=== PATIENT | male | born 1935 | race Caucasian/White ===

== ENCOUNTER → 2021-06-17 | Outpatient (CLI) | payer MEDICARE ==
[~2021-06-17] MED LIST: ASPI81CH PO; Flomax0.4 MG PO; NAPR500; NIFE30ER PO; SIMV10 PO; SIMV5
[2021-06-17 10:40] LABS: Source, Urine Clean Catch
[2021-06-17 11:04] LABS: Red Blood Cells, Urine Rare /hpf (0-2); Squamous Epithelial Cells Few /hpf (Few)
[2021-06-17 11:05] LABS: Bacteria Few /hpf
== END ==
LOC: LAB SHORT 10:33
PROVIDERS: General Practice
DX: R35.0 Frequency of micturition (principal)
CPT/HCPCS: 81015

== ENCOUNTER 2024-02-20 02:11 | Inpatient (IN) | payer MEDICARE ==
[~2024-02-20] VITALS: Ht 175.3 cm; Wt 70.5 kg
[~2024-02-20 02:11] MED LIST changes: -SIMV10 PO; +Simvastatin10 MG PO
[2024-02-20] MEDS ORDERED: NS 1,000 ML IV SCH (03:10)
[2024-02-20] MEDS ORDERED: FentaNYL Citrate 50 MCG/ML 2 ML Injection IV ONE (03:10)
[2024-02-20 03:11] LABS: BASOPHILS ABSOLUTE AUTO 0.04 K/mm3 (0.00-0.23); BASOPHILS PERCENT AUTO 0 % (0-2); EOSINOPHILS PERCENT AUTO 0 % (0-6); Hematocrit 43.9 % (37.0-53.0); Hemoglobin 14.9 g/dL (13.5-17.5); IMMATURE GRAN ABSOLUTE AUTO 0.04 K/mm3 (0.00-0.10); IMMATURE GRAN PERCENT AUTO 0 % (0-1); LYMPHOCYTES ABSOLUTE AUTO 0.69 K/mm3 (0.84-5.20); LYMPHOCYTES PERCENT AUTO 5 % (21-46); MONOCYTES ABSOLUTE AUTO 1.03 K/mm3 (0.16-1.47); MONOCYTES PERCENT AUTO 8 % (4-13); Mean Corpuscular HGB Conc 33.9 g/dL (31.5-36.5); Mean Corpuscular Volume 97 fL (80-100); Mean Platelet Volume 8.9 fL (9.1-12.4); NEUTROPHILS ABSOLUTE AUTO 11.45 K/mm3 (1.96-9.15); NEUTROPHILS PERCENT AUTO 86 % (41-73); Platelet Count 225 K/mm3 (150-400); RDW Standard Deviation 46.4 fL (35.1-46.3); Red Blood Cell Count 4.52 M/mm3 (4.30-5.90); White Blood Cell Count 13.25 K/mm3 (4.00-11.30)
[2024-02-20 03:29] LABS: Albumin, Blood 3.6 g/dL (3.4-5.0); Albumin/Globulin Ratio 1.1 (0.8-1.8); Bilirubin, Total 0.8 mg/dL (0.1-1.0); Calcium, Blood 9.6 mg/dL (8.5-10.1); Globulin, Blood 3.2 g/dL (2.2-4.0); Potassium, Blood 3.6 mmol/L (3.5-5.5); Total Protein, Blood 6.8 g/dL (6.4-8.2)
[2024-02-20] MEDS ORDERED: FLU VACC TS2024-25(6MOS UP)/PF 45 MCG/0.5 ML SYRINGE IM PRN (11:10)
[2024-02-20 12:56] VITALS: BP 129/82
--- NOTE | 2024-02-20 13:56 | NUR ---
ADMISSION NOTE: PATIENT ARRIVED TO THE UNIT AT 1251. PATIENT WAS TRANFERRED ONTO BED FROM [facility] PER REQUEST. PATIENT ON BEDREST AT THIS TIME DUE TO PAIN FROM FALL; STATES HE HAS A TAILBONE FRACTURE. HE FELL FRIDAY AND YESTERDAY. HE STATES THAT HE HAS BEEN WEAK LATELY AND OFF BALANCED. HE IS IN BED, SETTLED IN ROOM, CALL LIGHT PROVIDED, HE STATES HE WOULD LIKE TO WAIT FOR HIS FRIENDS TO ARRIVE WITH IS MEDICATION LIST PRIOR TO GOING OVER HIS HISTORY, NO SIGNS OR SYMPTOMS OF DISTRESS, PLAN OF CARE ONGOING.
[2024-02-20] MEDS ORDERED: MYRBETRIQ25 MG PO (15:21)
[2024-02-20] MEDS ORDERED: LISI5 PO (15:21)
[2024-02-20] MEDS ORDERED: NITR.4SL SL (15:22)
[2024-02-20] MEDS ORDERED: MEDROL PO (15:23)
[2024-02-20] MEDS ORDERED: PROBIOTIC1 EA13 PO (15:23)
[2024-02-20] MEDS ORDERED: Cranberry425 MG PO (15:24)
[2024-02-20] MEDS ORDERED: FEROSUL325 M1 PO (15:31)
[2024-02-20 15:57] VITALS: BP 129/71
[2024-02-20 16:31] VITALS: BP 129/71
--- NOTE | 2024-02-20 17:10 | NUR ---
CALLED AND GAVE REPORT TO RIKA MIXON AT [facility] AT 1700
[2024-02-20 17:14] VITALS: BP 129/71
--- NOTE | 2024-02-20 17:24 | NUR ---
SHIFT SUMMARY: PATIENT HAS BEEN A&OX4/ON BEDREST AT THIS TIME DUE TO FALLS AND WEAKNESS. PATIENT IS PLEASANT AND COOPERATIVE WITH CARE. HIS NEIGHBOR BILL CAME BY AND BROUGHT HIS MEDICATION LIST AND POLST THAT SHOWED THAT PATIENT IS A DNR AND COMFORT MEASURES; BUT PATIENT WISHES TO REVOKE THAT AND BE A FULL CODE. HE IS IN BED, CALL LIGHT WITHIN REACH, NO SIGNS OR SYMPTOMS OF DISTRESS, AWAITING MEDICAL TRANSFORT FOR [place] TRANSFER TO [facility] AT 1900.
[2024-02-20] MEDS ORDERED: NIFEdipine 30 MG TabCR PO SCH (21:00)
[2024-02-20] MEDS ORDERED: Ferrous Sulfate 325 MG Tab PO SCH (21:00)
[2024-02-20] MEDS ORDERED: Cranberry Extract 250MG W/30 MG Vitamin C Tab PO SCH (21:00)
[2024-02-20] MEDS ORDERED: Lactobacil 2-S.Thermo-Bifido 1 1 Cap PO SCH (21:00)
[2024-02-21] MEDS ORDERED: Trospium Chloride 20 MG Tab PO SCH (06:00)
[2024-02-21] MEDS ORDERED: Tamsulosin HCl 0.4 MG Cap PO SCH (09:00)
== END 2024-02-20 19:24 | disposition short-term general hospital (02) | DRG 55 ==
LOC: ER 02:11 → MEDS 11:07
PROVIDERS: Student in an Organized Health Care Education/Training Program; ADMIT Family Medicine
DX: C71.1 Malignant neoplasm of frontal lobe (principal); S32.2XXA Fracture of coccyx, initial encounter for closed fracture; S32.10XA Unspecified fracture of sacrum, initial encounter for closed fracture; E87.20 Acidosis, unspecified; M62.82 Rhabdomyolysis; Z51.5 Encounter for palliative care; Z66 Do not resuscitate; I48.91 Unspecified atrial fibrillation; N40.1 Benign prostatic hyperplasia with lower urinary tract symptoms; R33.8 Other retention of urine; E78.5 Hyperlipidemia, unspecified; I10 Essential (primary) hypertension; D72.829 Elevated white blood cell count, unspecified; W18.39XA Other fall on same level, initial encounter; Z88.0 Allergy status to penicillin; Z88.5 Allergy status to narcotic agent; Z88.2 Allergy status to sulfonamides; Z88.1 Allergy status to other antibiotic agents; Z79.82 Long term (current) use of aspirin; Z87.891 Personal history of nicotine dependence
CPT/HCPCS: 51702; 70450; 70496; 70498; 70553; 71045; 71260; 72192; 74177; 80053; 82550; 83605; 83880; 84484; 85025; 93005; 93010; 94762; 96374-59; 99285-25; A9579; J3010; J7030; Q9967

== ENCOUNTER → 2024-03-16 | Outpatient (CLI) | payer MEDICARE ==
[~2024-03-16] MED LIST changes: +Cranberry425 MG PO; +FEROSUL325 M1 PO; +LISI5 PO; +MEDROL PO; +MYRBETRIQ25 MG PO; +NITR.4SL SL; +PROBIOTIC1 EA13 PO
== END ==
LOC: LAB SHORT 12:10 → LAB 12:10 → LAB SHORT 03-18 07:30
DX: R39.9 Unspecified symptoms and signs involving the genitourinary system (principal)
CPT/HCPCS: 87086

== ENCOUNTER 2024-04-04 16:37 | Inpatient (IN) | payer MEDICARE ==
[~2024-04-04] VITALS: Ht 175.3 cm; Wt 66.7 kg
[2024-04-04 16:59] LABS: Hematocrit 46.2 % (37.0-53.0); Hemoglobin 15.7 g/dL (13.5-17.5); Mean Corpuscular Volume 97 fL (80-100); Mean Platelet Volume 8.5 fL (9.1-12.4); NRBC ABSOLUTE 0.02 K/mm3 (0.00-0.02); NRBC Auto 0.2 /100 WBC (0.0-0.2); Platelet Count 159 K/mm3 (150-400); RDW Coefficient Variation 15.8 % (11.7-14.2); RDW Standard Deviation 55.8 fL (35.1-46.3); Red Blood Cell Count 4.76 M/mm3 (4.30-5.90); White Blood Cell Count 11.44 K/mm3 (4.00-11.30)
[2024-04-04 17:24] LABS: Albumin, Blood 2.3 g/dL (3.4-5.0); Albumin/Globulin Ratio 0.8 (0.8-1.8); Bilirubin, Total 0.6 mg/dL (0.1-1.0); Bun/Creatinine Ratio 41.7 (12.0-20.0); Calcium, Blood 8.5 mg/dL (8.5-10.1); Creatinine, Blood 0.91 mg/dL (0.60-1.20); Globulin, Blood 2.9 g/dL (2.2-4.0); Potassium, Blood 4.7 mmol/L (3.5-5.5); Total Protein, Blood 5.2 g/dL (6.4-8.2)
[2024-04-04 17:31] LABS: BAND PERCENT MAN 4 % (0-8); BASOPHILS PERCENT MAN 0 % (0-2); EOSINOPHILS PERCENT MAN 0 % (0-6); LYMPHOCYTES ABSOLUTE MAN 1.48 K/mm3 (0.84-5.20); LYMPHOCYTES PERCENT MAN 13 % (21-46); MONOCYTES ABSOLUTE MAN 1.37 K/mm3 (0.16-1.47); MONOCYTES PERCENT MAN 12 % (4-13); MYELOCYTE ABSOLUTE MAN 0.22 K/mm3 (0.00-0.00); MYELOCYTE PERCENT MAN 2 % (0-0); NEUTROPHILS ABSOLUTE MAN 8.35 K/mm3 (1.96-9.15); SEG NEUTROPHILS PERCENT MAN 69 % (41-73); TOTAL CELLS COUNTED 100
[2024-04-04] MEDS ORDERED: Glycopyrrolate 0.2 MG/ML 5ML VIAL IV ONE (18:48)
[2024-04-04] MEDS ORDERED: Famotidine 10 MG/ML 2ML Vial IV ONE (18:55)
[2024-04-04] MEDS ORDERED: Lactated Ringer's 1,000 ML IV SCH (20:30)
[2024-04-04] MEDS ORDERED: FLU VACC TS2024-25(6MOS UP)/PF 45 MCG/0.5 ML SYRINGE IM SCH (20:30)
[2024-04-04] MEDS ORDERED: Ondansetron HCl 2 MG / ML 2ML Vial IV PRN (20:30)
[2024-04-04] MEDS ORDERED: Metoprolol Tartrate 25 MG Tab PO SCH (21:00)
[2024-04-04] MEDS ORDERED: dexAMETHasone 4 MG TAB PO SCH (22:00)
[2024-04-04] MEDS ORDERED: TAMSULOSIN HCL0.4 M1 PO (22:45)
[2024-04-04] MEDS ORDERED: DEXA4 PO (22:46)
[2024-04-04] MEDS ORDERED: METOPROLOL TART5010 PO (22:46)
[2024-04-04 23:04] VITALS: BP 94/75
[2024-04-04 23:22] LABS: Hematocrit 42.7 % (37.0-53.0); Hemoglobin 14.7 g/dL (13.5-17.5)
[2024-04-05] VITALS (22 sets, daily range): BP systolic 78–160; BP diastolic 51–149
--- NOTE | 2024-04-05 03:05 | NUR ---
STRAIGHT CATH PROCEDURE: PT USED URINAL AT [facility] AND VOIDED APPROX 225 MLS W/SBA AND FWW. HE REQUESTED ST.CATH AT THAT TIME D/T SENSATION OF RETENTION. HE HAS KNOWN HX OF URINARY RETENTION AND SELF CATHS 3-5 TIMES PER DAY AT BASELINE. BLADDER SCAN DONE AND PVR WAS >450 MLS. HE PREFERS TO PERFORM CATH PROCEDURE HIMSELF SO SUPPLIES AND SETUP ASSIST WERE PROVIDED AND STERILE TECHNIQUE UTILIZED. 14FR INTERMITTENT CATHERIZATION PERFORMED W/525 ML URINE OUTPUT OBTAINED.
[2024-04-05 03:35] LABS: Hemoglobin 15.1 g/dL (13.5-17.5)
[2024-04-05 03:58] LABS: Albumin, Blood 2.1 g/dL (3.4-5.0); Albumin/Globulin Ratio 0.8 (0.8-1.8); Bilirubin, Total 0.6 mg/dL (0.1-1.0); Bun/Creatinine Ratio 30.6 (12.0-20.0); Calcium, Blood 7.8 mg/dL (8.5-10.1); Creatinine, Blood 1.08 mg/dL (0.60-1.20); Globulin, Blood 2.5 g/dL (2.2-4.0); Potassium, Blood 4.4 mmol/L (3.5-5.5); Total Protein, Blood 4.6 g/dL (6.4-8.2)
[2024-04-05 07:17] LABS: Hematocrit 45.1 % (37.0-53.0); Hemoglobin 15.2 g/dL (13.5-17.5)
[2024-04-05] MEDS ORDERED: Polyethylene Glycol 3350 17 gm PO ONE ×2 (09:00→14:00)
[2024-04-05] MEDS ORDERED: Sodium, Potassium,Mag Sulfates 354 ML PO ONE (09:00)
[2024-04-05] MEDS ORDERED: Tamsulosin HCl 0.4 MG Cap PO SCH (09:00)
[2024-04-05] MEDS ORDERED: Atorvastatin 40 MG Tab PO SCH (09:00)
[2024-04-05] MEDS ORDERED: Lactated Ringer's 1,000 ML IV SCH ×2 (10:25→12:55)
--- NOTE | 2024-04-05 11:39 | NUR ---
PATIENT REQUIRES STRAIGHT CATH DUE TO RETENTION. BLADDER SCAN PERFORMED WITH 686 ML OF URINE NOTED IN BLADDER. STRAIGHT CATH PERFORMED VIA STERILE PROCEDURE WITH A 14 F STRAIGHT CATH. AREA CLEANED WITH BEDADINE. 600 ML OF YELLOW URINE RETURNED. PATIENT TOLERATED WELL.
[2024-04-05 12:44] LABS: Hemoglobin 18.8 g/dL (13.5-17.5)
[2024-04-05 12:45] LABS: Hematocrit 55.4 % (37.0-53.0)
[2024-04-05] MEDS ORDERED: propofoL 60 ML IV ONE (13:20)
--- NOTE | 2024-04-05 13:34 | NUR ---
04/05/24 1334 Donovan Beckwith History, Chart, Medications and Allergies reviewed before start of procedure. MONITOR INTACT WITH CONTINUOUS PULSE OXIMETRY, CONTINUOUS END TITAL CO2, AND INTERMITTENT BLOOD PRESSURE. 3-LEAD EKG REVIEWED WITH PHYSICIAN PRIOR TO START OF PROCEDURE. O2 VIA POM INTACT THROUGHOUT SEDATION/PROCEDURE.
[2024-04-05] MEDS ORDERED: NS 1,000 ML BAG IR ONE (14:30)
[2024-04-05] MEDS ORDERED: NS 500 ML BAG IV ONE (14:35)
[2024-04-05] MEDS ORDERED: Polyethylene Glycol 3350 17 gm PO SCH (16:00)
--- NOTE | 2024-04-05 17:04 | NUR ---
PATIENT IS A/O X4. PATIENT IS UNABLE TO AMBULATE INDEPENDENTLY AND REQUIRES ONE ASSIST. PATIENT HAD COLONOSCOPY, HOWEVER, UNABLE TO COMPELETE COLONOSCOPY AND WILL BE DONE OUTPATIENT. PATIENT PENDING ONCOLOGY APPT TOMORROW AND NEEDS TO BE AT APPT AT 3PM. PATIENT CURRENTLY ON TELEMETRY AND HAS BEEN RUNNING BETWEEN THE 130S AND 140S AFLUTTER. PER PROVIDER ORDER, PATIENT WAS GIVEN EARLY DOSE OF LOPRESSOR. PATIENT HAS HAD LOOSE STOOLS DUE TO BOWEL PREP, HOWEVER, IS ABLE TO CALL FOR ASSISTANCE WHEN NEEDED. PATIENT HAS WOUND ON COCCYX MEASURING 1CM X 1CM X 0. AREA IS RED BUT BLANCHABLE. NOT CURRENT WOUND CARE ORDERS. AREA IS TO BE CLEANED WITH NS. OPTIFOAM IS IN PLACE. DR KENDALL AWARE OF WOUND. PATIENT'S CAREGIVER IS AT BEDSIDE. CALL LIGHT IS WITHIN REACH.
[2024-04-05] MEDS ORDERED: Peg/Electrolytes 4,000 ML BTL PO SCH (18:00)
--- NOTE | 2024-04-05 18:22 | NUR ---
CONTACTED DR PIKE REGARDING CONTINUED RATE OF 140'S AFLUTTER. PER PROVIDER WILL PLACE CONSULT TO CARDIOLOGY.
[2024-04-06 03:39] VITALS: BP 123/79
--- NOTE | 2024-04-06 03:54 | NUR ---
CALL TO HOSPITALIST--PT C/O OF HEADACHE. NEW ORDER FOR TYLENOL 325-650MG 6Q PRN.
[2024-04-06] MEDS ORDERED: Acetaminophen 325 MG TABLET PO PRN (03:55)
--- NOTE | 2024-04-06 04:25 | NUR ---
SHIFT SUMMARY. PATIENT IS A&OX4. PATIENT BLADDER SCANNED X2 AND STRAIGHT CATHED X1-PATIENT STRAIGHT CATHS AT HOME AT BASELINE. PATIENT IS UNSTEADY ON FEET REQUIRING 1P ASSIST WITH AMBULATION. PATIENT IS PLEASANT AND COOPERATIVE WITH CARE. PATIENT HAD DISCOMFORT WITH STRAIGHT CATH TODAY-SMALL AMOUNT OF BLOOD NOTED WHEN STRAIGHT CATH REMOVED-NO FURTHER BLOOD NOTED. PATIENT HAS FRIEND IN ROOM WHO ASSIST PATIENT AT HOME-BILL. PATIENT IS EASILY DIRECTABLE. PATIENT REPORTS HEADACHE THIS EVENING-BREAK NURSE CONTACTED DOCTOR-SEE PREVIOUS NOTE. PATIENT IS RESTING WITH RESPIRATIONS EQUAL AND UNLABORED. PATIENT HAS TELE ON WITH LEADS IN PLACE-PATIENT HAS BEEN RUNNING AFLUTTER BETWEEN 80 AND 104. BED IS LOCKED IN THE LOWEST POSITION WITH CALL LIGHT IN REACH. CARE IS ONGOING.
[2024-04-06] MEDS ORDERED: Peg/Electrolytes 4,000 ML BTL PO SCH (07:00)
[2024-04-06 08:06] VITALS: BP 113/72
--- NOTE | 2024-04-06 13:36 | NUR ---
DR KENDALL CONTACTED TO ADVISE OF AFLUTTER WITH RVR WITH SUSTANINED HR OF 130-150. [address] DR KENDALL WILL PLACE ORDERS. PENDING NEW ORDERS
[2024-04-06] MEDS ORDERED: Metoprolol Tartrate 25 MG Tab PO ONE (13:50)
[2024-04-06] MEDS ORDERED: Metoprolol Tartrate 1 MG/ML 5 ML VIAL IV ONE (14:00)
[2024-04-06] MEDS ORDERED: Acetaminophen325 M1 PO (14:12)
--- NOTE | 2024-04-06 14:46 | NUR ---
DISCHARGE NOTE PATIENT DISCHARGED HOME WITH CAREGIVER AT SIDE. PATIENT GIVEN DISCHARGE INSTRUCTIONS WITH PATIENT VERBALIZING UNDERSTANDING. PATIENT TAKEN DOWN VIA WHEELCHAIR
== END 2024-04-06 14:34 | disposition home health service (06) | DRG 378 ==
LOC: ER 16:37 → ERHOLD 20:25 → MEDS 20:25 → ENPENDDIS 04-06 12:58 → MEDS 04-06 14:34
PROVIDERS: Internal Medicine Gastroenterology; Nurse Practitioner Acute Care; Student in an Organized Health Care Education/Training Program; ADMIT Internal Medicine
PROC: 0DJD8ZZ Inspection of Lower Intestinal Tract, Via Natural or Artificial Opening Endoscopic (ICD-10-PCS; principal; 2024-04-05 13:00)
DX: K92.1 Melena (principal); C71.9 Malignant neoplasm of brain, unspecified; I48.20 Chronic atrial fibrillation, unspecified; E78.5 Hyperlipidemia, unspecified; N40.0 Benign prostatic hyperplasia without lower urinary tract symptoms; I10 Essential (primary) hypertension; G47.33 Obstructive sleep apnea (adult) (pediatric); Z88.0 Allergy status to penicillin; Z88.5 Allergy status to narcotic agent; Z88.8 Allergy status to other drugs, medicaments and biological substances; Z88.2 Allergy status to sulfonamides; Z79.82 Long term (current) use of aspirin; Z79.811 Long term (current) use of aromatase inhibitors; Z79.899 Other long term (current) drug therapy; Z98.890 Other specified postprocedural states; Z87.19 Personal history of other diseases of the digestive system; Z87.891 Personal history of nicotine dependence; Z85.46 Personal history of malignant neoplasm of prostate; Z90.89 Acquired absence of other organs
CPT/HCPCS: 36415; 51701; 70450; 74177; 80053; 85014; 85018; 85025; 86850; 86900; 86901; 93005; 93010; 96374-59; 97162; 99285-25; A9270; J2704; J7040; J7120; Q9967

== ENCOUNTER 2024-04-11 08:19 | Inpatient (IN) | payer MEDICARE ==
[~2024-04-11] VITALS: Ht 182.9 cm; Wt 77.1 kg
[~2024-04-11 08:19] MED LIST changes: +Acetaminophen325 M1 PO; +DEXA4 PO; +METOPROLOL TART5010 PO; +TAMSULOSIN HCL0.4 M1 PO
[2024-04-11 09:08] LABS: Chloride (POC) 104 mmol/L (98-108); Creatinine (POC) 0.8 mg/dL (0.8-1.3); Glucose (ISTAT POC) 76 mg/dL (70-99); Hemoglobin (POC) 11.2 g/dL (13.5-17.5); Potassium (POC) 3.4 mmol/L (3.5-5.5); Sodium (POC) 139 mmol/L (135-148); Total CO2 (POC) 25 mmol/L (21-32)
[2024-04-11] MEDS ORDERED: levETIRAcetam 1,500 MG in NS 100 ML IV ONE (09:10)
[2024-04-11] MEDS ORDERED: NS 1,000 ML IV SCH ×2 (10:25→14:00)
[2024-04-11] MEDS ORDERED: Dextrose 5% 500 ML IV SCH (10:50)
[2024-04-11] MEDS ORDERED: Dexamethasone Sod Phos 10 MG/ML 1ML VIAL IV ONE (10:50)
[2024-04-11 11:08] LABS: BASOPHILS ABSOLUTE AUTO 0.06 K/mm3 (0.00-0.23); BASOPHILS PERCENT AUTO 1 % (0-2); EOSINOPHILS ABSOLUTE AUTO 0.02 K/mm3 (0.00-0.68); EOSINOPHILS PERCENT AUTO 0 % (0-6); Hematocrit 41.6 % (37.0-53.0); Hemoglobin 13.9 g/dL (13.5-17.5); IMMATURE GRAN ABSOLUTE AUTO 0.47 K/mm3 (0.00-0.10); IMMATURE GRAN PERCENT AUTO 5 % (0-1); LYMPHOCYTES PERCENT AUTO 17 % (21-46); MONOCYTES ABSOLUTE AUTO 0.58 K/mm3 (0.16-1.47); MONOCYTES PERCENT AUTO 6 % (4-13); Mean Corpuscular HGB 33.2 pg (26.0-34.0); Mean Corpuscular HGB Conc 33.4 g/dL (31.5-36.5); Mean Corpuscular Volume 99 fL (80-100); Mean Platelet Volume 8.7 fL (9.1-12.4); NEUTROPHILS ABSOLUTE AUTO 7.04 K/mm3 (1.96-9.15); NEUTROPHILS PERCENT AUTO 71 % (41-73); NRBC ABSOLUTE 0.05 K/mm3 (0.00-0.02); NRBC Auto 0.5 /100 WBC (0.0-0.2); Platelet Count 100 K/mm3 (150-400); RDW Standard Deviation 58.4 fL (35.1-46.3); Red Blood Cell Count 4.19 M/mm3 (4.30-5.90); White Blood Cell Count 9.87 K/mm3 (4.00-11.30)
[2024-04-11 11:24] LABS: International Normalized Ratio 0.98; Prothrombin Time Results 10.5 Sec (9.7-11.5)
[2024-04-11 11:31] LABS: Albumin/Globulin Ratio 0.8 (0.8-1.8); Bilirubin, Total 0.5 mg/dL (0.1-1.0); Bun/Creatinine Ratio 41.7 (12.0-20.0); Calcium, Blood 8.2 mg/dL (8.5-10.1); Creatinine, Blood 0.65 mg/dL (0.60-1.20); Globulin, Blood 2.4 g/dL (2.2-4.0); Magnesium, Blood 2.2 mg/dL (1.6-2.4); Potassium, Blood 3.8 mmol/L (3.5-5.5); Total Protein, Blood 4.4 g/dL (6.4-8.2)
[2024-04-11] MEDS ORDERED: Lidocaine 2% Jelly Uro-Jet UR ONE (13:15)
[2024-04-11] MEDS ORDERED: FLU VACC TS2024-25(6MOS UP)/PF 45 MCG/0.5 ML SYRINGE IM ONE (13:25)
[2024-04-11] MEDS ORDERED: LORazepam 2 MG/ML 1ML Injection IV PRN (13:25)
[2024-04-11] MEDS ORDERED: Dexamethasone Sodium Phosphate 4 MG/ML 1ML Vial IV SCH (18:00)
[2024-04-11 18:15] VITALS: BP 96/58
[2024-04-11] MEDS ORDERED: Metoprolol Tartrate 1 MG/ML 5 ML VIAL IV PRN (20:15)
[2024-04-11 20:53] VITALS: BP 114/61
[2024-04-11] MEDS ORDERED: levETIRAcetam 1,000 MG in NS 100 ML IV SCH (21:00)
[2024-04-11 23:53] VITALS: BP 85/72
[2024-04-12] VITALS (13 sets, daily range): BP systolic 91–121; BP diastolic 62–97
[2024-04-12] MEDS ORDERED: Metoprolol Tartrate 1 MG/ML 5 ML VIAL IV PRN ×2 (03:25→17:35)
[2024-04-12 04:51] LABS: BASOPHILS ABSOLUTE AUTO 0.03 K/mm3 (0.00-0.23); BASOPHILS PERCENT AUTO 0 % (0-2); EOSINOPHILS PERCENT AUTO 0 % (0-6); Hematocrit 44.2 % (37.0-53.0); Hemoglobin 15.1 g/dL (13.5-17.5); IMMATURE GRAN ABSOLUTE AUTO 0.45 K/mm3 (0.00-0.10); IMMATURE GRAN PERCENT AUTO 4 % (0-1); LYMPHOCYTES ABSOLUTE AUTO 0.86 K/mm3 (0.84-5.20); LYMPHOCYTES PERCENT AUTO 7 % (21-46); MONOCYTES ABSOLUTE AUTO 0.43 K/mm3 (0.16-1.47); MONOCYTES PERCENT AUTO 4 % (4-13); Mean Corpuscular HGB 33.5 pg (26.0-34.0); Mean Corpuscular HGB Conc 34.2 g/dL (31.5-36.5); Mean Corpuscular Volume 98 fL (80-100); Mean Platelet Volume 8.9 fL (9.1-12.4); NEUTROPHILS ABSOLUTE AUTO 10.49 K/mm3 (1.96-9.15); NEUTROPHILS PERCENT AUTO 86 % (41-73); NRBC ABSOLUTE 0.02 K/mm3 (0.00-0.02); NRBC Auto 0.2 /100 WBC (0.0-0.2); Platelet Count 124 K/mm3 (150-400); RDW Coefficient Variation 16.3 % (11.7-14.2); RDW Standard Deviation 58.2 fL (35.1-46.3); Red Blood Cell Count 4.51 M/mm3 (4.30-5.90); White Blood Cell Count 12.26 K/mm3 (4.00-11.30)
[2024-04-12 05:18] LABS: Bun/Creatinine Ratio 42.4 (12.0-20.0); Calcium, Blood 8.1 mg/dL (8.5-10.1); Creatinine, Blood 0.52 mg/dL (0.60-1.20); Potassium, Blood 4.1 mmol/L (3.5-5.5)
[2024-04-12] MEDS ORDERED: Metoprolol Tartrate 1 MG/ML 5 ML VIAL IV ONE ×2 (06:35→14:15)
--- NOTE | 2024-04-12 10:00 | NUR ---
AM NOTE: UPON SHIFT START PATIENT CALM AND COOPERATIVE. NICK BILL AT BEDSIDE. LEFT MITT IN PLACE AND DISCONTINUED AT 0937. PATIENT OPENING EYES AND FOLLOWING SIMPLE COMMANDS. RIGHT FACIAL DROOP NOTED WHEN PATIENT IS SMILING. ANSWERING MOSTLY YES AND NO QUESTIONS. AT TIMES PATIENT IS HAVING A HARD TIME FINDING WORDS WHEN TALKING. SPEECH SOFT BUT CLEAR. PERRLA. GLASSES AT BEDSIDE. RIGHT ARM FLACCID WITH MINIMAL MOVMENT IN RIGHT LOWER EXTREMITY. PATIENT OVERALL WEAK. MOVING LEFT ARM AND LEG. TELE SHOWING AFIB WITH HR 120-130'S. DENIES CHEST PAIN/PRESSURE/PALPITATIONS. SBP 90-100'S. EDEMA NOTED TO RIGHT ARM AND BLE. IV FLUIDS INFUSING PER EMAR. ON ROOM AIR, LUNGS SOUNDS CLEAR. SATING OVER 95%. DENIES SOB/COUGH. EVEN AND UNLABORED RESPIRATIONS. BOWEL TONES PRESENT. ATTENDS IN PLACE. SMEAR BOWEL MOVEMENT. NO BLOOD NOTED IN STOOL. SPEECH THERAPY ORDERS IN PLACE. HINDS CATH IN PLACE DRAINING DEILBERTO URINE TO GRAVITY. SOME BROKEN TEETH NOTED. ORAL CARE Q4 AND NEEDED. SUCTION AT BEDSIDE. SKIN OVERALL FRAGILE, DRY AND BRUISED. CALL LIGHT IN REACH. BED ALARM IN PLACE.
[2024-04-12] MEDS ORDERED: Metoprolol Tartrate 50 MG Tab PO SCH (12:15)
--- NOTE | 2024-04-12 14:30 | NUR ---
DR. KU NOTIFIED OF HR TRENDS AT 1039. HR TRENDING UP 150'S. AT TIMES TOUCHING 160'S. SPEECH THERAPY AT BEDSIDE AND PATIENT CLEARED FOR PILLS WITH APPLESAUCE. ORDERS FOR HOME MED METOPROLOL TARTRATE 50MG PO BID STARTING NOW RECIEVED AT 1152. PO METOPROLOL GIVEN. PATIENT HR CONTINUES TO TREND UP AT TIMES TOUCHING 180'S. DR. KU NOTIFIED OF HR TREND AND CURRENT BLOOD PRESSURES. ORDERS FOR IV METOPROLOL 5MG PUSH X1 NOW. ORDERS IN PLACE AND IV METOPROLOL GIVEN. PATIENT HR RESPONDED WELL WITH HR 110-130'S. DR. KU UPDATED ON CURRENT HR AND BLOOD PRESSURE. PATIENT AT TIMES AGGITATED IN BED PULLING AT GOWN WITH LEFT HAND. DURING THIS TIMES PATIENT NEEDED TO HAVE A BOWEL MOVMENT OR REPOSITION. POA BILL AT BEDSIDE. BED ALARM REMAINS IN PLACE.
--- NOTE | 2024-04-12 18:41 | NUR ---
SHIFT SUMMARY: NO ACUTE CHANGES, SEE PREVIOUS NOTES. POA BILL REMAINS AT BEDSIDE. ONCOLOGY CONSULTED. VITAL SIGNS STABLE WITH HR 110-120'S IN AFIB. DR KU AT BEDSIDE THIS EVENING AND ORDERS FOR IV METOPROLOL 5MG Q4 PRN FOR HR SUSTAINING ABOVE 140, HOLDING FOR SBP LESS THAN 100. ORDERS IN PLACE. RIGHT SIDE CONTINUES TO BE FLACCID WITH MINIMAL MOVEMENT IN RIGHT FOOT/ANKLE. SCD'S IN PLACE. PATIENT TOLERATING DIET WELL WITH ASSISTANCE. REMAINS ON ROOM AIR. CALL LIGHT IN REACH. BED ALARM IN PLACE.
[2024-04-12 19:28] LABS: Albumin, Blood 1.4 g/dL (3.4-5.0); Anion Gap 12 mmol/L (3-11); Blood Urea Nitrogen 26 mg/dL (8-24); Bun/Creatinine Ratio 37.4 (12.0-20.0); CO2, Blood 20 mmol/L (21-32); Chloride, Blood 114 mmol/L (98-108); Glomerular Filtration Rate 89 (60-); Glucose, Blood 178 mg/dL (70-99); Phosphorus, Blood 2.1 mg/dL (2.5-4.9); Sodium, Blood 142 mmol/L (136-145)
--- NOTE | 2024-04-12 21:17 | NUR ---
ASSUMPTION OF CARE. ASSUMED PT'S CARE AT 1900.[facility].PT'S CAREGIVER AND A FEMALE GUEST AT BEDSIDE.PLAN OF CARE REVIEWED.PT DENIES PAIN,DENIES NEEDS.CALL LIGHT AND PT'S ITEMS WITHIN REACH.WILL CONTINUE TO MONITOR.
[2024-04-13 03:42] VITALS: BP 116/81
[2024-04-13 04:33] LABS: BASOPHILS ABSOLUTE AUTO 0.06 K/mm3 (0.00-0.23); BASOPHILS PERCENT AUTO 1 % (0-2); EOSINOPHILS PERCENT AUTO 0 % (0-6); Hematocrit 42.7 % (37.0-53.0); Hemoglobin 14.5 g/dL (13.5-17.5); IMMATURE GRAN ABSOLUTE AUTO 0.58 K/mm3 (0.00-0.10); IMMATURE GRAN PERCENT AUTO 4 % (0-1); LYMPHOCYTES ABSOLUTE AUTO 0.82 K/mm3 (0.84-5.20); LYMPHOCYTES PERCENT AUTO 6 % (21-46); MONOCYTES ABSOLUTE AUTO 0.57 K/mm3 (0.16-1.47); MONOCYTES PERCENT AUTO 4 % (4-13); Mean Corpuscular Volume 100 fL (80-100); Mean Platelet Volume 8.8 fL (9.1-12.4); NEUTROPHILS ABSOLUTE AUTO 11.06 K/mm3 (1.96-9.15); NEUTROPHILS PERCENT AUTO 84 % (41-73); NRBC ABSOLUTE 0.02 K/mm3 (0.00-0.02); NRBC Auto 0.2 /100 WBC (0.0-0.2); Platelet Count 124 K/mm3 (150-400); RDW Coefficient Variation 16.6 % (11.7-14.2); RDW Standard Deviation 60.1 fL (35.1-46.3); Red Blood Cell Count 4.27 M/mm3 (4.30-5.90); White Blood Cell Count 13.09 K/mm3 (4.00-11.30)
--- NOTE | 2024-04-13 06:30 | NUR ---
SHIFT SUMMARY PT HAS BEEN SLEEPING ON/OFF,REPOSITIONED EVERY TWO HOURS.CAREGIVER BILL AT BEDSIDE.NO SEIZURE ACTIVITY NOTED THIS SHIFT.HR 109-140'S,SBP 90-100,MAP WNL.NO C/O PAIN/DISCOMFORT.CALL LIGHT AND PT'S ITEMS WITHIN REACH.WILL GIVE REPORT TO DAYSHIFT NURSE.
[2024-04-13 07:43] VITALS: BP 97/63
[2024-04-13 08:00] VITALS: BP 109/66
[2024-04-13] MEDS ORDERED: Ondansetron HCl 2 MG / ML 2ML Vial IV PRN (08:45)
[2024-04-13] MEDS ORDERED: LORazepam 1 MG Tab PO PRN (08:45)
[2024-04-13] MEDS ORDERED: Acetaminophen 650 MG Supp PR PRN (08:45)
[2024-04-13] MEDS ORDERED: Acetaminophen 160MG / 5ML 10.15 UDC PO PRN (08:45)
[2024-04-13] MEDS ORDERED: Promethazine HCl 25 MG Supp PR PRN (08:50)
[2024-04-13] MEDS ORDERED: Scopolamine Hydrobromide Patch TOP PRN (08:50)
[2024-04-13] MEDS ORDERED: LevETIRAcetam 500 MG Tab PO SCH (09:00)
[2024-04-13 10:00] VITALS: BP 92/60
[2024-04-13 11:00] VITALS: BP 107/70
[2024-04-13] MEDS ORDERED: LEVE500 PO (12:11)
--- NOTE | 2024-04-13 12:57 | NUR ---
[facility] N[facility] IN ROOM FOR EVALUATION. NO S/SX OF DISTRESS NOTED. PC TO REMAIN AVAILABLE NEEDED.
--- NOTE | 2024-04-13 15:08 | NUR ---
DISCHARGE SUMMARY PT SOMMULENT BUT EASILY AWAKENS TO VERBAL STIMULI, PT ORIENTENT TO SELF AND FRIENDS/FAMILY/ NOT TO TODAYS DATE OR SITUATION, PT BEDREST, PT OBEYS COMMANDS, RIGHT ARM FLACID AND RIGHT LEG WEAKER COMPAIRED TO LEFT. CONTINUOUS SPO2, SPO2 GREATER THAN 90% ON RA, LUNGS SOUND CLEAR T/O. CONTINUOUS TELE MONITORING, HR AND BP STABLE WITH MAP GREATER THAN 65, PULSES PRESENT T/O, RIGHT ARM EDEMA AND BLE EDEMA WITH THE RIGHT SLIGHTLY WORSE THAN THE LEFT. BOWEL TONES PRESENT IN ALL 4Q, ABD SOFT AND NONTENDER, PT INCONTINENT OF BOWELS. HINDS IN PLACE PATENT/DRAINING TO GRAVITY/SUCTION, URINE EDILBERTO IN COLOR. PT DENIES PAIN. DR. KU CAME TO BEDSIDE THIS SHIFT. PALATIVE CARE CAME TO BEDSIDE THIS SHIFT. LEXII RN CAME TO BEDSIDE THIS SHIFT. EDUCATION PROVIDED TO CAREGIVER. IV S REMOVED, PT TRANSFERRED VIA SLIDING TO MEDICAL TRANSPORT [facility] @ APPROX 1305. HINDS LEFT PER ORDERS.
[2024-04-14] MEDS ORDERED: Omeprazole 20 MG CapCR PO SCH (06:00)
== END 2024-04-13 16:52 | disposition hospice, home (50) | DRG 840 ==
LOC: ER 08:19 → PCU 13:21 → ERHOLD 13:21 → PCU 18:00
PROVIDERS: Emergency Medicine; Family Medicine; Student in an Organized Health Care Education/Training Program; ADMIT Family Medicine
DX: C85.19 Unspecified B-cell lymphoma, extranodal and solid organ sites (principal); G93.6 Cerebral edema; N13.8 Other obstructive and reflux uropathy; Z66 Do not resuscitate; Z51.5 Encounter for palliative care; R56.9 Unspecified convulsions; E78.5 Hyperlipidemia, unspecified; I10 Essential (primary) hypertension; I48.91 Unspecified atrial fibrillation; D69.6 Thrombocytopenia, unspecified; N40.1 Benign prostatic hyperplasia with lower urinary tract symptoms; Z98.890 Other specified postprocedural states; Z88.0 Allergy status to penicillin; Z88.2 Allergy status to sulfonamides; Z88.8 Allergy status to other drugs, medicaments and biological substances; Z88.6 Allergy status to analgesic agent; Z79.82 Long term (current) use of aspirin; Z79.899 Other long term (current) drug therapy; Z87.891 Personal history of nicotine dependence
CPT/HCPCS: 36415; 51702; 70450; 80047; 80048; 80053; 80069; 82330; 82947; 83735; 85014; 85025; 85610; 85730; 86850; 86900; 86901; 92610; 93005; 93010; 96361-59; 96365-59; 96375-59; 99285-25; A9270; J1100; J1953; J7030; J7060